=== PATIENT | male | born 1995 | race Caucasian/White ===

== ENCOUNTER 2016-06-08 12:10 | Emergency (ER) ==
--- NOTE | 2016-06-08 14:25 | PROVIDER DOCUMENTATION ---
[facility] General - General Source: patient - History of Present Illness-[facility] Location: reports: throat Quality of Pain: reports: aching Severity: reports: mild Onset/Duration: reports: just prior to arrival Timing: reports: still present Prearrival Treatment: Initiated no prearrival treatment Associated Symptoms: reports: cough, sore throat, other (body aches). denies: fever, nasal congestion/drainage Locality of Occurance: Home Similar Symptoms Previously?: No Recently seen or treated by another doctor?: No - Eyes Eye Problem Symptoms: denies: eye pain - Ears Ear Problem Symptoms: reports: none - Throat/Dental Throat/Dental Problem Symptoms: reports: sore throat Throat/Dental Problem Context: denies: recent dental extractions Recently seen a dentist or have an appointment?: No <Re Reyes - Last Filed: 06/08/16 14:21> <Rodri Goldman - Last Filed: 06/08/16 15:04> - General Chief Complaint: Cold Symptoms Stated Complaint: COUGH/CONGESTION Time Seen by Provider: 06/08/16 14:03 Allergies/Adverse Reactions: Patient Allergies Allergy/AdvReac Type Severity Reaction Status Date / Time No Known Allergies Allergy Verified 11/30/14 23:40 Home Medications: Home Medication List Medication Instructions Recorded Confirmed Last Taken Type Omeprazole [Prilosec] 20 mg PO DAILY #30 capsule 05/16/15 Unknown Rx Amoxicillin [Amoxil] 500 mg PO BID #14 capsule 06/08/16 Unknown Rx Prednisone 20 mg PO DAILY #6 tablet 06/08/16 Unknown Rx - History of Present Illness-[facility] General Nature of Presenting Problem: Pt is 20 y/o M presents to the ED with cough, sore throat, and body aches. Pt denies F. Pt states symptoms started today. (Re Reyes) Review of Systems - Adult - REVIEW OF SYSTEMS - ADULT Constitutional: denies: chills, fever Eyes: denies: blurred vision, double vision Ears, Nose, Mouth & Throat: reports: throat pain. denies: ear pain, nose pain Cardiovascular: denies: chest pain, heart murmur, irregular heart rate Respiratory: reports: cough. denies: shortness of breath, wheezing Gastrointestinal: denies: abdominal pain, diarrhea, nausea, vomiting Genitourinary: denies: dysuria, hematuria Musculoskeletal: reports: muscle aches. denies: bone pain, joint pain, neck pain Integumentary: denies: hives, itching Neurological: denies: dizziness/vertigo, headache/migraines Psychiatric: reports: no symptoms reported Endocrine: reports: no symptoms reported Hematologic/Lymphatic: reports: no symptoms reported Allergic/Immunologic: reports: no symptoms reported All Other Systems: Reviewed and Negative <Savannah Reyesomi - Last Filed: 06/08/16 14:21> Past History - Adult - PAST MEDICAL HISTORY-ADULT Review of Records: reports: Nursing Assessment Review, Medications Reviewed, Social history reviewed & non-contributory. Major Childhood Illnesses: reports: denies history Cardiovascular: reports: denies history Respiratory: reports: asthma Gastrointestinal: reports: denies history Obstetrical/Gynecological: reports: denies history Genitourinary: reports: denies history Musculoskeletal: reports: denies history Neurological: reports: denies history Endocrine/Immune: reports: denies history Other Conditions: reports: denies history - PRIOR SURGERIES/PROCEDURES Surgical/Procedure History: reports: orthopedic (extremity) - IMMUNIZATION STATUS Childhood Immunizations: See Nurse Assessment Flu Vaccine: See Nurse Assessment - FAMILY HISTORY Family History: reviewed, not pertinent - SOCIAL HISTORY Smoking: cigarettes, less than 1 pack/day Provider spent 3-5 mins advising pt. on dangers of tobacco.: Discussed manners to quit use, and f/u contacts for add'l counseling. Substance Use: denies Living Situation: family <Savannah Reyesomi - Last Filed: 06/08/16 14:21> Physical Exam- EENT - Physical Exam EENT Initial Vital Signs Reviewed: Yes General Appearance: appears well, alert, no apparent distress Eye Exam: bilateral eye: normal inspection, PERRL, EOMI Ear Exam: bilateral ear: auricle normal, canal normal, TM normal Nasal Exam: normal inspection Throat Exam: pharynx normal, tonsillar exudate Neck: non-tender, full range of motion, supple, normal inspection Respiratory: chest non-tender, lungs clear, normal breath sounds, no pleuratic chest pain, no respiratory distress, no accessory muscle use Cardiovascular: normal peripheral pulses, regular rate, rhythm, no edema, no gallop, no JVD, no murmur Abdominal Exam: normal bowel sounds, non tender, soft, no organomegaly, no pulsatile mass Lymphatic: no adenopathy Back Exam: normal inspection, no CVA tenderness, no vertebral tenderness Extremity: normal range of motion, non-tender, normal gait, normal inspection, no pedal edema, no calf tenderness Integumentary: normal color, normal turgor, warm/dry Neurologic: grossly normal Psych/Mental Status: normal mood/affect, oriented x 3 <Re Reyes - Last Filed: 06/08/16 14:21> Progress <Re Reyes - Last Filed: 06/08/16 14:21> <Rodri Goldman - Last Filed: 06/08/16 15:04> - PLAN OF CARE/RESULTS Progress/Plan/Lab Results: Vital Signs - 24 hr 06/08/16 12:20 Temperature 98 F Pulse Rate 79 Respiratory 18 Rate Blood Pressure 140/89 O2 Sat by Pulse 99 Oximetry (Re Reyes) Departure <Re Reyes - Last Filed: 06/08/16 14:21> - Departure Time of Disposition Order: 15:03 Certified Medical Emergency: Urgent <Rodri Goldman - Last Filed: 06/08/16 15:04> - Departure DIAGNOSIS: Tonsillitis with exudate Disposition: HOME 01 Condition: Good Additional Instructions: Take medication as prescribed. Follow up with your primary care provider. Return to the ER for any new or worsening symptoms. ED Follow Up Instructions: You have been treated by a care provider in the Emergency Department. These instructions are being provided to you so you can have an understanding of how to care for yourself upon discharge. Upon discharge from the Emergency Department, you are responsible for making arrangements for follow-up care by a physician of your choice. Take all prescribed medications as directed. Return to the Emergency Department immediately for any new or worsening symptoms. You may call the Physician Referral phone number at [phone] to obtain a list of Physicians who are taking new patients. Prescriptions: Amoxicillin [Amoxil] 500 mg PO BID #14 capsule Prednisone 20 mg PO DAILY #6 tablet Referrals: None,PCP [Primary Care Provider] - Attestation - Scribe Verification/Attestation Scribe:: Re Reyes Acting as Scribe for:: Rodri Goldman Scribe documention review:: This chart was documented by a scribe and accurately reflects the service the provider performed and the decisions made by the provider. <Re Reyes - Last Filed: 06/08/16 14:21> - Physician/ MATEO Attestation Patient care was provided by Advanced Practice Provider:: Yes Advanced Practice Provider:: Rodri Goldman Advanced Practice Provider documentation review:: The Mid-level provider documentation, treatment plan and medical decision making was reviewed by the physician who agrees with all treatment and medical decision making by the MLP. <Rodri Goldman - Last Filed: 06/08/16 15:04> Physician Attestation
[2016-06-08 15:31] VITALS: BP 118/77
== END 2016-06-08 15:30 | disposition home or self-care (01) ==
LOC: P.ED 12:10
DX: J03.90 Acute tonsillitis, unspecified (principal); R05 Cough; J02.9 Acute pharyngitis, unspecified; M79.1 Myalgia; F17.210 Nicotine dependence, cigarettes, uncomplicated; Z71.6 Tobacco abuse counseling; Z79.899 Other long term (current) drug therapy
CPT/HCPCS: 99282